=== PATIENT | female | born 1940 | race Caucasian/White ===

== ENCOUNTER 2017-01-16 13:35 | Emergency (ER) | payer MEDICARE, OTHER ==
[~2017-01-16] VITALS: Ht 160 cm; Wt 90.9 kg
[~2017-01-16 13:35] MED LIST: BUPR75TA5 PO; LORA1TAB PO; OMEP20TA24 PO
[2017-01-16 13:38] VITALS: BP 165/95; PULSE 79; RESP 18; O2SAT 98
--- NOTE | 2017-01-16 14:02 | DRSVH ---
PROCEDURE: X-RAY CHEST ONE VIEW, PORTABLE ([id number]) INDICATIONS: CHEST PAIN TECHNIQUE: One view of the chest was acquired. COMPARISON: [facility], CT, KUB - CT ([facility]), 01/29/2014, 8:20. FINDINGS: Surgical changes and devices: None. Lungs and pleura: No pleural effusions or pneumothorax. Lungs are clear. Mediastinum: Mediastinal contours appear normal. Heart size is normal. Hiatal hernia is present. Bones and chest wall: No suspicious bony lesions. Overlying soft tissues appear unremarkable. IMPRESSION: No acute pulmonary process. Prominent hiatal hernia. Dictated by: Fide Acosta M.D. on 01/16/2017 at 13:00 Approved by: Fide Acosta M.D. on 01/16/2017 at 13:01
[2017-01-16] MEDS ORDERED: VITA1TAB22 PO (14:45)
[2017-01-16] MEDS ORDERED: KLO5T PO (14:45)
[2017-01-16] MEDS ORDERED: ASPI-973 PO (14:45)
[2017-01-16 15:06] LABS: BASOPHILS % (AUTO) 0.8 % (0-3); EOSINOPHILS % (AUTO) 1.9 % (0-5); MONOCYTES % (AUTO) 9.8 % (4-12); Mean Corpuscular Hemoglobin 25.6 pg (27.0-35.0); Mean Corpuscular Volume 82.6 fL (81-100); NEUTROPHILS % (AUTO) 50.5 % (40-74); Platelet Count 233 bil/L (150-400)
--- NOTE | 2017-01-16 15:26 | ED.REPORT ---
HPI-Chest Pain 40 and Over Date of Service January 16, 2017 ED Provider: Doc,Ed MD The patient is a 76 year old female with history of hiatal hernia who presents to the emergency department complaining of left-sided chest pain and left arm pain that has been intermittent over the last 3 months. Excedrin relieves her pain. She has also noticed fatigue and shortness of breath. With exertion she feels more fatigued and short of breath. Her pain does not seem to be associated to her breathing. After further questioning she seems to be more concerned about her shortness of breath than her pain. She denies diaphoresis, nausea, dizziness, cough or fever. She denies history of cardia disease. The patient states she had a stroke 3 weeks ago. She was seen by her primary doctor who ordered a brain MRI and carotid ultrasound. There were no acute findings on either test. Nursing Notes Stated Complaint: CHEST PAIN/SHORTNESS OF BREATH Chief Complaint: Chest Pain Nursing Notes Reviewed: Yes Allergies: Coded Allergies: codeine (Verified Adverse Reaction, Mild, N/V, 11/24/14) Scheduled Aspirin (Aspirin) 81 Mg Tablet 162 MG PO DAILY Clonazepam (Clonazepam) 0.5 Mg Tablet 0.5 MG PO DAILY Miscellaneous Medications B Complex with Vitamin C (Vitamin B-Complex with Vit C) 1 Each Tablet 1 EACH PO General Time Seen by MD: 15:25 Chief Complaint Chest pain Hx Obtained From: Patient, Spouse Arrived By: Walk-in Sudden in Onset?: Yes Onset Occurred: More than a week ago... Symptom Duration: Intermittent Location: : Chest left Quality: Painful Radiation: : Arm left Severity: Current: Moderate Severity: Maximum: Moderate Recent Healthcare: No recent hospitalization, Recent doctor visit Similar Sx Previous: Yes Past Medical History Past Medical History Hiatal hernia Depression Prior stroke Family History Noncontributory Smoking History Never Smoker Social History Other Social History: Good social support, , Local resident Ambulatory Status Independent Review of Systems Constitutional: Reports: Fatigue, Denies: Fever Respiratory: Reports: Dyspnea on exertion, Shortness of breath, Denies: Non-productive cough, Prod cough, bloody, Prod cough, brown, Prod cough, clear, Prod cough, green, Prod cough, white, Prod cough, yellow Cardiovascular: Reports: Chest pain GI: Denies: Nausea Musculoskeletal: Reports: Extremity pain Skin: Denies Diaphoresis Neurologic: Denies: Dizziness Complete sys rev & neg: except as marked. Physical Exam Initial Vital Signs Vital Signs (First) Date Time Temp Pulse Resp B/P Pulse Ox O2 Delivery O2 Flow Rate FiO2 01/16/17 13:38 35.3 79 18 165/95 98 Room Air Initial VS: Reviewed Head / Eyes: Atraumatic, Normocephalic, PERRL ENT: Mucous membranes moist, Conjunctiva normal, No scleral icterus Neck: Supple, Non-tender, Full range of motion Lymphatic: No lymphadenopathy Extremities: Vascular intact, Neuro intact, No swelling, No tenderness Skin: Warm, Dry, No cyanosis Neurologic: Alert, Oriented, Nonfocal Psychiatric: Mood/affect normal, Behavior normal, Normal thought content General/Constitutional: Awake, Alert, No acute distress, Well appearing Respiratory / Chest: Atraumatic, Breath sounds NL, Breath sounds = bilat, No respiratory distress, No rales, No rhonchi, No wheezing, No stridor, No chest tenderness, No chest wall deformity Cardiovascular: Heart rate NL, Regular rhythm, Heart sounds NL, No gallop, No murmurs, No rubs, Peripheral circulation NL, Pulses = bilaterally, No gross BP differential Abdomen: Atraumatic, Soft, Non-tender, McBurney's non-tender, No guarding, No rebound, BS normoactive, No distention, No hernia, No palpable mass Interpretation & Diagnostics Lab Results Interpretation Result Diagram: 01/16/17 1445 01/16/17 1445 Test 01/16/17 14:45 White Blood Count 5.2th/mm3 (3.8-10.1) Red Blood Count 3.90mil/mm3 (3.90-5.20) Hemoglobin 10.0g/dL (12.0-15.6) Hematocrit 32.2% (35.0-46.0) Mean Corpuscular Volume 82.6fL (81-100) Mean Corpuscular Hemoglobin 25.6pg (27.0-35.0) Mean Corpuscular Hemoglobin Concent 31.1% (32.0-37.0) Red Cell Distribution Width 14.8% (12.3-15.4) Platelet Count 233bil/L (150-400) Neutrophils (%) (Auto) 50.5% (40-74) Lymphocytes (%) (Auto) 36.8% (14-46) Monocytes (%) (Auto) 9.8% (4-12) Eosinophils (%) (Auto) 1.9% (0-5) Basophils (%) (Auto) 0.8% (0-3) Sodium Level 141mEq/L (134-144) Potassium Level 3.9mEq/L (3.5-5.2) Chloride Level 103mEq/L (97-108) Carbon Dioxide Level 25mmol/L (18-29) Blood Urea Nitrogen 15mg/dL (8-27) Creatinine 0.78mg/dL (0.57-1.00) Estimat Glomerular Filtration Rate 103mL/min (>59) Glucose Level 96mg/dL (60-99) Calcium Level 9.0mg/dL (8.5-10.1) Magnesium Level 1.9mg/dL (1.6-2.6) Total Bilirubin 0.4mg/dL (0.0-1.2) Aspartate Amino Transf (AST/SGOT) 23U/L (0-50) Alanine Aminotransferase (ALT/SGPT) 11U/L (0-32) Alkaline Phosphatase 96U/L (25-165) Troponin T < 0.010ug/L (0.0-0.011) Total Protein 7.4g/dL (6.4-8.4) Albumin 3.9g/dL (3.4-5.0) Hold Weathers Top Tube Received (Received) ECG Interpretation ECG Interpretation: Atrial paced rhythm with a rate of 64 Time: 14:06 Interpreted by: ED physician X-Ray Chest Interpretation Chest Xray Interpretation: IMPRESSION: No acute pulmonary process. Prominent hiatal hernia. Dictated by: Fide Acosta M.D. on 01/16/2017 at 13:00 Interpretation / Wet Read by: Interpret - Radiologist Re-Eval/Medical Decision Source of Hx: Old records, Family Time of Eval: 15:44 Re-Evaluation/Progress Note: Discussed results, diagnosis, and plan for discharge. All questions were addressed. Counseled Regarding: Diagnosis, Lab results, Need for follow-up, When/why to return to ED Discharge & Departure Primary Impression: Chest pain Chest pain type: unspecified Qualified Code: R07.9 - Chest pain, unspecified Additional Impressions: Dyspnea on exertion Fatigue Fatigue type: unspecified Qualified Code: R53.83 - Other fatigue Left arm pain Disposition: Home Discharge Condition All VS Reviewed: Yes Condition: Stable Additional Instructions: Thank you for entrusting us with your care today. Your workup today included a chest x-ray, EKG, and labs. The results are reassuring. We did not find a dangerous cause for your pain today. There is no evidence of a heart attack, pneumonia or congestive heart failure. Followup with Dr. Downing in the next week or two for further evaluation. Return to the emergency department for any new or concerning symptoms. Referrals: Luis Downing MD (PCP) Scribe Attestation Portions of this note were transcribed by Lanette Duran. I, Dr. Harding personally performed the history, physical exam and medical decision-making; I reviewed and confirmed the accuracy of the information in the transcribed note. Signed by: Jonathan Spence, 01/16/2017 at 1600. copies to: Luis Downing MD, Kirk H MD January 16, 2017 15:26 Lanette Duran January 16, 2017 15:28
[2017-01-16 15:39] LABS: TROPONIN T < 0.010 ug/L (0.0-0.011)
[2017-01-16 15:46] LABS: Magnesium 1.9 mg/dL (1.6-2.6)
[2017-01-16 16:07] VITALS: BP 143/78; PULSE 63; RESP 16; O2SAT 99
== END 2017-01-16 16:26 | disposition home or self-care (01) ==
LOC: SED 13:35
DX: R07.9 Chest pain, unspecified (principal); M79.602 Pain in left arm; R53.83 Other fatigue; R06.00 Dyspnea, unspecified; R06.02 Shortness of breath; F32.9 Major depressive disorder, single episode, unspecified; Z86.73 Personal history of transient ischemic attack (TIA), and cerebral infarction without residual deficits; Z79.82 Long term (current) use of aspirin; Z88.5 Allergy status to narcotic agent